=== PATIENT | female | born 1955 | race Two or more races ===

== ENCOUNTER → 2024-02-22 11:15 | Outpatient (CLI) | payer OTHER ==
[2024-02-22 12:05] LABS: HEMATOCRIT 44.9 % (36.0-45.00); HEMOGLOBIN 15.9 g/dL (12.0-15.00); MEAN CELL VOLUME 95.3 fL (80.00-100.00); MEAN CORPUSCULAR HEMOGLOBIN 33.7 pg (27.00-32.0); MEAN CORPUSCULAR HGB CONC 35.3 g/dl (32.0-36.0); PLATELET COUNT 233 K/uL (150-450); RED BLOOD COUNT 4.71 M/uL (4.00-6.00); RED CELL DISTRIBUTION WIDTH 12.8 % (11.5-14.5)
[2024-02-22 14:17] LABS: ALBUMIN 3.9 gm/dL (3.4-5.0); BILIRUBIN TOTAL 0.5 mg/dL (0.3-1.2); CALCIUM 9.4 mg/dL (8.5-10.1); CREATININE SERUM 0.71 mg/dL (0.55-1.02); GFR 81.38; GLOBULINA 3.2 G/DL (2.4-3.5); POTASSIUM 4.69 mEq/L (3.5-5.1); TOTAL PROTEIN 7.1 gm/dL (6.4-8.2)
[2024-02-25 08:41] LABS: MANUAL PLATELET COUNT 268
[2024-02-25 08:42] LABS: PLATELET ESTIMATE NORMAL (NORMAL)
== END | disposition home or self-care (01) ==
LOC: LAB 11:15
PROVIDERS: ATTEND Internal Medicine Hematology & Oncology
DX: D50.8 Other iron deficiency anemias (principal); R79.9 Abnormal finding of blood chemistry, unspecified; I10 Essential (primary) hypertension; R74.02 Elevation of levels of lactic acid dehydrogenase [LDH]; K76.89 Other specified diseases of liver; D72.10 Eosinophilia, unspecified; M81.0 Age-related osteoporosis without current pathological fracture; E78.2 Mixed hyperlipidemia; D51.3 Other dietary vitamin B12 deficiency anemia

== ENCOUNTER 2024-03-27 10:48 | Outpatient (CLI) | payer OTHER ==
[2024-03-27 12:19] LABS: HEMATOCRIT 39.8 % (36.0-45.00); HEMOGLOBIN 13.7 g/dL (12.0-15.00); MEAN CELL VOLUME 96.2 fL (80.00-100.00); MEAN CORPUSCULAR HEMOGLOBIN 33.2 pg (27.00-32.0); MEAN CORPUSCULAR HGB CONC 34.5 g/dl (32.0-36.0); PLATELET COUNT 266 K/uL (150-450); RED BLOOD COUNT 4.14 M/uL (4.00-6.00); RED CELL DISTRIBUTION WIDTH 13.1 % (11.5-14.5)
[2024-03-27 12:22] LABS: URINE APPEARANCE Clear; URINE BILIRRUBIN Negative (NEGATIVE); URINE BLOOD Negative; URINE COLOR Yellow; URINE GLUCOSE Negative (NEGATIVE); URINE KETONE Negative (NEGATIVE); URINE LEUKOCYTE Negative; URINE NITRATE Negative; URINE PROTEIN Negative (NEGATIVE); URINE UROBILINOGEN 0.2 E.U./dl
[2024-03-27 12:26] LABS: URINE BACTERIA 79.4 uL (0.0-1933); URINE EPITHELIAL CELLS 10.2 uL (0.0-38.8)
[2024-03-27 12:31] LABS: URINE WBC 1.4 uL (0.0-23.2)
[2024-03-27 13:00] LABS: ERYTHROCYTE SEDIMENTATION RATE 16 mm/hr
[2024-03-27 13:48] LABS: FOLIC ACID > 20.00 ng/ml (4.78-20); VITAMIN D3 25 HYDROXY 37.99 ng/ml (30-120)
[2024-03-27 14:00] LABS: % SATURACION 25.5 % (15-50); ALBUMIN 3.8 gm/dL (3.4-5.0); BILIRUBIN TOTAL 0.42 mg/dL (0.3-1.2); CALCIUM 9.8 mg/dL (8.5-10.1); CHOL HDL RATIO 2.4 (0-5.0); CREATININE SERUM 0.72 mg/dL (0.55-1.02); FERRITIN 138.6 NG/ML (8-252); FREE TRIODOTIRONINE 2.24 pg/ml (2.18-3.98); GFR 80.08; POTASSIUM 4.21 mEq/L (3.5-5.1); T4 FREE 0.89 NG/ML (0.76-1.46); TOTAL PROTEIN 6.8 gm/dL (6.4-8.2); TSH 1.86 uIU/mL (0.358-3.74)
[2024-03-29 06:06] LABS: ANTI THYROID PEROXIDASE < 9 IU/mL (0-34); CA 125 9.1 U/mL (0.0-38.1); ESTRADIOL SERUM 15.2 pg/mL (0.0-54.7); FOLLICLE STIMULATING HORMONE 94.9 mIU/mL (25.8-134.8); TESTOSTERONE,TOTAL < 3.00 ng/dL (3-67)
[2024-03-29 08:09] LABS: HOMOCYSTEINE 8.8 umol/L (0.0-17.2); TRANSFERIN 265 mg/dL (192-364)
== END 2024-03-27 10:53 | disposition home or self-care (01) ==
LOC: LAB 10:48
PROVIDERS: ATTEND Internal Medicine Hematology & Oncology
DX: D72.10 Eosinophilia, unspecified (principal); M81.0 Age-related osteoporosis without current pathological fracture; E78.2 Mixed hyperlipidemia; D51.3 Other dietary vitamin B12 deficiency anemia; R97.0 Elevated carcinoembryonic antigen [CEA]; B96.81 Helicobacter pylori [H. pylori] as the cause of diseases classified elsewhere; D50.8 Other iron deficiency anemias; J01.91 Acute recurrent sinusitis, unspecified; J20.9 Acute bronchitis, unspecified; D64.9 Anemia, unspecified; E55.9 Vitamin D deficiency, unspecified; E03.9 Hypothyroidism, unspecified; N95.1 Menopausal and female climacteric states; E78.9 Disorder of lipoprotein metabolism, unspecified; N39.0 Urinary tract infection, site not specified; G89.3 Neoplasm related pain (acute) (chronic); R19.09 Other intra-abdominal and pelvic swelling, mass and lump; R97.1 Elevated cancer antigen 125 [CA 125]; E72.11 Homocystinuria; D50.9 Iron deficiency anemia, unspecified; E25.9 Adrenogenital disorder, unspecified

== ENCOUNTER 2024-04-08 14:43 | Outpatient (CLI) | payer OTHER | END 2024-04-08 14:53 | disposition home or self-care (01) | LOC: LAB 14:43 | PROVIDERS: ATTEND Internal Medicine Hematology & Oncology | DX: D72.10 Eosinophilia, unspecified (principal); M81.0 Age-related osteoporosis without current pathological fracture; E78.2 Mixed hyperlipidemia; D51.3 Other dietary vitamin B12 deficiency anemia; J01.91 Acute recurrent sinusitis, unspecified; J20.9 Acute bronchitis, unspecified ==